=== PATIENT | male | born 1985 | race African-American/Black ===

== ENCOUNTER 2017-03-08 03:05 | Inpatient (IN) | payer MEDICAID ==
[~2017-03-08] VITALS: Ht 185.4 cm; Wt 161.5 kg
[~2017-03-08 03:05] MED LIST: ALPR2TAB1 PO; CLOP75TA26 PO; FOLI0.8T PO; HYDR2TAB6 PO; HYDR500C7 PO; LOV40I SUBQ; OXYC40TE66 PO; QUET400T PO; WARF10TA PO
[2017-03-08 03:18] VITALS: BP 147/113
--- NOTE | 2017-03-08 03:50 | NUR ---
PT TO ER ROOM 3 VIA W/C
--- NOTE | 2017-03-08 04:05 | NUR ---
31 Y/O M W/C/O CHEST PAIN AND SOB X 2 HRS. MED HX SICKLE CELL, AR, PE, DVT, STROKE, BIPOLAR. PT STATES CP IS SUBSTERNAL, NONRADIATING WITH N/V; PT AMBULATED WITH WHEELCHAIR; PT AAOX4; BREATHING IS CURRENTLY UNLABORED AND CLEAR; PT CURRENTLY O2SAT 98% RA
--- NOTE | 2017-03-08 04:09 | NUR ---
PT HAS PICC LINE TO LEFT MEDIAL UPPER ARM
--- NOTE | 2017-03-08 04:14 | NUR ---
X-Ray at bedside.
--- NOTE | 2017-03-08 04:31 | NUR ---
Dr. Webber evaluating patient at bedside.
[2017-03-08] MEDS ORDERED: ALBUTEROL SULFATE/IPRATROPIU 3 ML SOL IH ONE (04:35)
[2017-03-08] MEDS ORDERED: methylPREDNISolone SS 125 MG/2 ML VIAL IVP ONE (04:35)
[2017-03-08] MEDS ORDERED: HYDROmorphone PFS 4 MG/ML SYR IVP ONE ×3 (04:35→07:05)
[2017-03-08] MEDS ORDERED: NACL 0.9% 1,000 ML IV ONE ×2 (04:35→06:05)
[2017-03-08] MEDS ORDERED: diphenhydrAMINE 50 MG/ML VIAL IVP ONE ×3 (04:35→07:05)
[2017-03-08 04:50] LABS: EOSINOPHILS # (AUTO) 0.3 K/uL (0-0.4); HEMOGLOBIN 9.9 g/dL (12.0-18.0); NEUTROPHILS # (AUTO) 4.4 K/uL (1.8-7.7); WHITE BLOOD COUNT (AUTO) 6.4 K/uL (4.8-10.8)
[2017-03-08 05:01] LABS: BASOPHILS # (AUTO) 0.1 K/uL (0.00-0.22); BASOPHILS % (AUTO) 1.9 % (0.0-2.0); EOSINOPHILS % (AUTO) 4.1 % (0.0-4.0); HEMATOCRIT 32.4 % (36-52); LYMPHOCYTES # (AUTO) 1.2 K/uL (2.0-11.5); LYMPHOCYTES % (AUTO) 19.1 % (20.5-51.1); MEAN CORPUSCULAR HEMOGLOBIN 26 pg (27-31); MEAN CORPUSCULAR HGB CONC 31 g/dL (33-37); MEAN CORPUSCULAR VOLUME 86 fL (80-94); MONOCYTES # (AUTO) 0.4 K/uL (0.8-1.0); PLATELET COUNT (AUTO) 257 K/uL (140-450); RED BLOOD CELL COUNT(AUTO) 3.77 MIL/uL (4.20-6.10); RED CELL DISTRIBUTION WIDTH 18.3 % (11.6-13.7)
[2017-03-08 05:02] LABS: ANION GAP 14.9 (8-16); CARBON DIOXIDE 26.6 mmol/L (21-32); CREATININE 1.4 mg/dL (0.7-1.3); POTASSIUM 3.5 mmol/L (3.5-5.1)
[2017-03-08 05:05] LABS: NEUTROPHILS % (AUTO) 67.9 % (42.2-75.2)
[2017-03-08 05:07] LABS: PROTHROMBIN TIME 11.1 secs (10.8-13.4)
[2017-03-08 05:08] LABS: ALBUMIN 3.7 g/dL (3.4-5.0); TOTAL BILIRUBIN 0.3 mg/dL (0.0-1.0)
[2017-03-08 05:30] LABS: CKMB RELATIVE INDEX 0.4 (0.0-2.5); CREATINE KINASE MB 3.4 ng/mL (0-3.6)
[2017-03-08] MEDS ORDERED: ONDANSETRON 4 MG/2 ML VIAL IVP PRN (06:45)
[2017-03-08] MEDS ORDERED: HYDROmorphone PFS 2 MG/ML SYR IVP PRN (06:45)
[2017-03-08] MEDS ORDERED: ACETAMINOPHEN 325 MG TAB PO PRN (06:45)
[2017-03-08] MEDS ORDERED: VANCOMYCIN 1,250 MG in DEXTROSE 5% 250 ML IV ONE (07:05)
--- NOTE | 2017-03-08 07:17 | NUR ---
Pt report given to ESTRELLITA. Transfer of care at this time.
[2017-03-08] MEDS ORDERED: VANCOMYCIN 1,000 MG VIAL ONE (07:25)
[2017-03-08] MEDS: DOCUSATE SODIUM 100 MG GELCAP PO SCH ×2 (09:00→21:00)
[2017-03-08] MEDS ORDERED: HYDROmorphone 1 MG/ML AMP IVP ONE (10:20)
--- NOTE | 2017-03-08 11:25 | NUR ---
Patient will be admitted to care of DR GUERRIER. Admited to TELE. Will go to room 105A. Belongings list completed. Report to EDWARD FRYE.
[2017-03-08 11:55] LABS: APPEARANCE,URINE CLEAR (CLEAR); BILIRUBIN,URINE NEGATIVE (NEGATIVE); BLOOD, URINE TRACE-L (NEGATIVE); COLOR,URINE YELLOW (YELLOW); LEUKOCYTE ESTERASE ,URINE NEGATIVE (NEGATIVE); NITRITE, URINE NEGATIVE (NEGATIVE); PH,URINE 5.5 (5.0-9.0); UGLUCOSE NEGATIVE (NEGATIVE)
[2017-03-08] MEDS ORDERED: diphenhydrAMINE 50 MG/ML VIAL IVP PRN (11:55)
[2017-03-08 12:00] VITALS: BP 142/76
[2017-03-08 12:02] LABS: BARBITURATE, URINE NEG. ng/ml (NEG <=200); BENZODIAZEPINE, URINE POS. ng/mL (NEG <=200); CANNABINOID, URINE NEG. ng/mL (NEG <=50); COCAINE, URINE NEG. ng/mL (NEG <=300); OPIATE, URINE POS. ng/mL (NEG <=2000); PHENCYCLIDINE SCREEN,URINE NEG. ng/mL (NEG <=25)
--- NOTE | 2017-03-08 12:15 | NUR ---
PATIENT WAS TRANSFERRED FROM ER IN HIS WHEELCHAIR. PATIENT IS AWAKE, ALERT, ORIENTEDX4. PUPILS EQUAL REACTIVE TO LIGHT. RESPIRATION EVEN, LUNGS SOUND CLEAR THROUGHOUT. CARDIAC S1,S2 PRESENT. SKIN INTACT. BOWEL SOUND ACTIVE 4 QUADRANTS. PICC LINE ON LEFT ARM WITH DOUBLE LUMEN, PATENT AND INTACT. VS TAKEN, MRSA WAS SWABBED AND SENT TO LAB. PATIENT WAS ORIENTED TO STAFF, ROOM, AND CALL LIGHT. PATIENT WAS PLACED ON UNSCRAMBLER. COMPLAINED OF PAIN 10/10 ON CHEST AND JOINTS. WILL MEDICATE PER ORDER. CALL LIGHT WITHIN REACH. WILL CONTINUE TO MONITOR.
[2017-03-08 12:34] LABS: RBC,URINE 0-5 (RARE) /HPF (0-5); WBC,URINE 0-5 (RARE) /HPF (0-5)
[2017-03-08] MEDS: NACL 0.9% 1,000 ML IV SCH ×3 (12:47→20:34)
[2017-03-08 13:05] LABS: CHOL/HDL RATIO 3.6 (1-4.5); FREE T4 (FREE THYROXINE) 1.02 ng/dL (0.76-1.46); MAGNESIUM 2.1 mg/dL (1.8-2.4); PHOSPHORUS 4.7 mg/dL (2.5-4.9); THYROID STIMULATING HORMONE 5.74 uIU/mL (0.34-3.74)
[2017-03-08] MEDS: HYDROmorphone PFS 2 MG/ML SYR IVP PRN ×5 (14:32→22:43)
[2017-03-08] MEDS ORDERED: NITROGLYCERIN 0.4 MG TAB SL PRN (15:00)
[2017-03-08 16:00] VITALS: BP 149/83
[2017-03-08] MEDS: diphenhydrAMINE 50 MG/ML VIAL IVP PRN ×2 (16:28→20:28)
--- NOTE | 2017-03-08 16:34 | NUR ---
PT C/O GENERALIZED JOINT PAIN, RATES 10/10, REQUESTS DILAUDID AND BENADRYL, PT TALKING WITH ROOM MATE SMILING AND LAUGHING IN NAD, MEDICATED PER PRN ORDER, CALL PRATER WITHIN REACH, SIDE RAILS UP, BED LOCKED IN LOW POSITION, WILL CONTINUE TO MONITOR.
[2017-03-08] MEDS: HYDROXYUREA 500 MG CAP PO SCH (17:00)
--- NOTE | 2017-03-08 18:35 | NUR ---
PATIENT IS AWAKE ALERT, WATCHING TV. RESPIRATION EVEN, NO DISTRESS NOTED. PATIENT COMPLAINED OF JOINT PAIN 9/10. PAIN MED WAS GIVEN PER ORDER. CALL LIGHT WITHIN REACH. WILL CONTINUE TO MONITOR
--- NOTE | 2017-03-08 19:31 | NUR ---
ENDORSEMENT GIVEN TO THE DIRECTOR OF PROMOTIONS NURSE. PATIENT IS STABLE AT THIS TIME.
--- NOTE | 2017-03-08 19:32 | NUR ---
PATIENT REPORT RECEIVED FROM MORNING NURSE AT BEDSIDE. PATIENT IS AWAKE, ALERT AND ORIENTED. NO SIGNS AND SYMPTOMS OF DISTRESS NOTED. PATIENT IS RESTING COMFORTABLY IN BED. PICC LINE NOTED IN LEFT UPPER ARM, INTACT AND PATENT WITH NS RUNNING AT 150ML/HR. BED IN LOWEST POSITION SIDE RAILS UP AND CALL LIGHT WITHIN REACH. WILL CONTINUE TO MONITOR.
[2017-03-08 20:00] VITALS: BP 151/85
[2017-03-08] MEDS: ATORVASTATIN 20 MG TAB PO SCH (20:22)
[2017-03-08] MEDS: METOPROLOL 25 MG TAB PO SCH (20:23)
[2017-03-08] MEDS: QUEtiapine FUMARATE 100 MG TAB PO SCH (20:24)
--- NOTE | 2017-03-08 21:00 | NUR ---
PATIENT REFUSED COLACE. GAVE EDUCATION ON MEDICATION. PATIENT STATED THAT HE HAD A BOWEL MOVEMENT THIS MORNING.
[2017-03-08] MEDS: HYDROcodone/APAP 7.5/325 MG 1 TAB PO PRN (21:49)
[2017-03-09] VITALS: BP 124/78
[2017-03-09] MEDS: diphenhydrAMINE 50 MG/ML VIAL IVP PRN ×4 (00:44→21:45)
[2017-03-09] MEDS: HYDROmorphone PFS 2 MG/ML SYR IVP PRN ×6 (00:50→23:47)
[2017-03-09] MEDS: NACL 0.9% 1,000 ML IV SCH ×2 (03:08→09:25)
[2017-03-09 04:00] VITALS: BP 141/94
--- NOTE | 2017-03-09 06:44 | NUR ---
PATIENT HAS BEEN SCREENED AND CATEGORIZED HIGH NUTRITION RISK. PATIENT WILL BE SEEN WITHIN 1-2 DAYS OF ADMISSION. 03/09/17-03/10/17 BETTY HOLLINS MS, RDN
--- NOTE | 2017-03-09 07:05 | NUR ---
CHECKED ON PATIENT. NOTICED SOME BLOOD ON PATIENT'S GOWN, NEAR LEFT ARM. FOUND OUT THAT THE PATIENT ACCIDENTALLY PULLED OUT HIS PICC LINE. PICC LINE CATHETER WITH BLUE TIP INTACT. PUT PRESSURE, AND TAPED SOME GAUZE ON THE SITE TO STOP ANY BLEEDING. GERRY BANDAGE WRAPPED AROUND LEFT ARM. CHECKED PATIENT'S O2 SAT, IT IS AT 100%. NO SIGNS AND SYMPTOMS OF DISTRESS NOTED ON THE PATIENT. DOCTOR MAYRA NOTIFIED. DOCTOR SPOKE WITH PATIENT.
--- NOTE | 2017-03-09 07:33 | NUR ---
PATIENT REPORT GIVEN TO MORNING NURSE AT BEDSIDE. PATIENT IS IN STABLE CONDITION.
--- NOTE | 2017-03-09 07:33 | NUR ---
ENDORSEMENT RECEIVED FROM NITROCELLULOSE MAKER NURSE. PATIENT IS STABLE, RESPIRATION EVEN, SKIN DRY AND WARM TO THE TOUCH. CALL LIGHT WITHIN REACH. WILL CONTINUE TO MONITOR.
[2017-03-09 08:00] VITALS: BP 144/88
--- NOTE | 2017-03-09 08:00 | NUR ---
PATIENT IS SLEEPING, EASILY AROUSABLE BY NAME. PUPILS EQUAL, REACTIVE TO LIGHT. RESPIRATION EVEN, LUNGS SOUND CLEAR THROUGHOUT. CARDIAC WITH S1,S2 PRESENT. BOWEL SOUND ACTIVE 4 QUADRANTS. SKIN INTACT. COMPLAINED OF JOIN PAINT 12/22. WILL MEDICATE PER ORDER. CALL LIGHT WITHIN REACH. WILL CONTINUE TO MONITOR.
--- NOTE | 2017-03-09 08:17 | NUR ---
UNABLE TO START PIV, DR JOHNSTON NOTIFIED FOR CENTRAL LINE START.
[2017-03-09] MEDS ORDERED: HYDROmorphone PFS 2 MG/ML SYR IM SCH ×2 (08:21→12:30)
[2017-03-09] MEDS: DOCUSATE SODIUM 100 MG GELCAP PO SCH ×2 (09:00→21:00)
[2017-03-09] MEDS: HYDROXYUREA 500 MG CAP PO SCH ×3 (09:00→17:00)
[2017-03-09] MEDS: LISINOPRIL 5 MG TAB PO SCH (09:43)
[2017-03-09] MEDS: ASPIRIN 81 MG TAB.CHEW PO SCH (09:43)
[2017-03-09] MEDS: QUEtiapine FUMARATE 100 MG TAB PO SCH ×2 (09:43→21:36)
[2017-03-09] MEDS: METOPROLOL 25 MG TAB PO SCH ×2 (09:44→21:37)
--- NOTE | 2017-03-09 09:50 | NUR ---
PATIENT IS SLEEPING, AROUSABLE BY NAME. MEDS WERE GIVEN. PATIENT IS STABLE AT THIS TIME. CALL LIGHT WITHIN REACH. WILL CONTINUE TO MONITOR
--- NOTE | 2017-03-09 11:30 | NUR ---
PATIENT REFUSED TO HAVE VITAL SIGN TAKEN UNTIL THE PICC CAN BE INSERTED. DR. PIZARRO WAS MADE AWARE.
[2017-03-09] MEDS ORDERED: HYDROmorphone 1 MG/ML AMP IM SCH (12:30)
[2017-03-09] MEDS ORDERED: LIDOCAINE/EPI 2% 1:100000 20 ML VIAL INJ SCH (12:30)
--- NOTE | 2017-03-09 12:55 | NUR ---
AT BEDSIDE FOR PICC LINE INSERTION. CONSENT OBTAINED, TIME OUT DONE
[2017-03-09] MEDS: HYDROcodone/APAP 7.5/325 MG 1 TAB PO PRN ×3 (13:44→23:00)
--- NOTE | 2017-03-09 16:00 | NUR ---
PATIENT REFUSED VITAL SIGN AND STATED PATIENT WANTED TO HAVE THE CENTRAL LINE IN FIRST. WILL CONTINUE TO MONITOR
--- NOTE | 2017-03-09 16:30 | NUR ---
PAIN MEDICATION WAS GIVEN VIA CENTRAL LINE. LINE FLUSHED WELL. LAB WAS DRAWN FROM CENTRAL LINE ON LEFT FEMORAL. PATIENT TOLERATED WELL. IVF WAS RECONNECTED. CALL LIGHT WITHIN REACH. WILL CONTINUE TO MONITOR
[2017-03-09] MEDS ORDERED: WARFARIN 5 MG TAB PO SCH (17:00)
[2017-03-09] MEDS ORDERED: HYDROmorphone PFS 4 MG/ML SYR IVP SCH (17:20)
[2017-03-09] MEDS ORDERED: VANCOMYCIN PER PHARMACY MC PRN (17:35)
[2017-03-09 17:48] LABS: BASOPHILS # (AUTO) 0.1 K/uL (0.00-0.22); BASOPHILS % (AUTO) 2.1 % (0.0-2.0); EOSINOPHILS # (AUTO) 0.1 K/uL (0-0.4); HEMATOCRIT 29.6 % (36-52); HEMOGLOBIN 9.2 g/dL (12.0-18.0); LYMPHOCYTES # (AUTO) 1.7 K/uL (2.0-11.5); LYMPHOCYTES % (AUTO) 25.5 % (20.5-51.1); MEAN CORPUSCULAR HEMOGLOBIN 26 pg (27-31); MEAN CORPUSCULAR HGB CONC 31 g/dL (33-37); MEAN CORPUSCULAR VOLUME 85 fL (80-94); MONOCYTES # (AUTO) 0.5 K/uL (0.8-1.0); MONOCYTES % (AUTO) 7.6 % (1.7-9.3); NEUTROPHILS # (AUTO) 4.2 K/uL (1.8-7.7); NEUTROPHILS % (AUTO) 63.8 % (42.2-75.2); PLATELET COUNT (AUTO) 256 K/uL (140-450); RED BLOOD CELL COUNT(AUTO) 3.48 MIL/uL (4.20-6.10); WHITE BLOOD COUNT (AUTO) 6.6 K/uL (4.8-10.8)
[2017-03-09 17:58] LABS: ANION GAP 8.7 (8-16); CARBON DIOXIDE 30.7 mmol/L (21-32); CREATININE 1.1 mg/dL (0.7-1.3); POTASSIUM 3.4 mmol/L (3.5-5.1)
[2017-03-09 18:05] LABS: PROTHROMBIN TIME 10.5 secs (10.8-13.4)
[2017-03-09 18:23] LABS: MAGNESIUM 1.9 mg/dL (1.8-2.4); PHOSPHORUS 3.3 mg/dL (2.5-4.9)
--- NOTE | 2017-03-09 19:39 | NUR ---
ENDORSEMENT GIVEN TO BI TESTER NURSE. PATIENT IS STABLE AT THIS TIME.
--- NOTE | 2017-03-09 19:40 | NUR ---
PATIENT REPORT RECEIVED FROM MORNING NURSE AT BEDSIDE. PATIENT IS AWAKE, ALERT AND ORIENTED. PATIENT SITTING IN HIS WHEELCHAIR. PICC LINE NOTED ON LEFT FEMORAL AREA. NO SIGNS AND SYMPTOMS OF DISTRESS NOTED. CALL LIGHT WITHIN REACH. WILL CONTINUE TO MONITOR.
[2017-03-09 20:00] VITALS: BP 136/99
--- NOTE | 2017-03-09 20:30 | NUR ---
PATIENT COMPLAINED THAT AFTER HE WENT TO THE RESTROOM, HE SAW A LITTLE BIT OF BLOOD ON THE TOILET SEAT. PATIENT REQUESTED TO SEE THE DOCTOR. DR. JOHNSTON SAW THE PATIENT AND THEN CHANGED THE DRESSING ON THE PICC LINE
[2017-03-09] MEDS ORDERED: VANCOMYCIN 1,000 MG VIAL ONE (21:19)
[2017-03-09] MEDS: ATORVASTATIN 20 MG TAB PO SCH (21:38)
[2017-03-09] MEDS: VANCOMYCIN 1GM/DEXT 5% PREMIX 400 ML IV SCH (22:00)
[2017-03-10] VITALS (7 sets, daily range): BP systolic 113–138; BP diastolic 64–80
[2017-03-10] MEDS: HYDROmorphone PFS 2 MG/ML SYR IVP PRN ×11 (01:47→22:06)
[2017-03-10] MEDS: diphenhydrAMINE 50 MG/ML VIAL IVP PRN ×6 (01:52→22:07)
[2017-03-10] MEDS: HYDROcodone/APAP 7.5/325 MG 1 TAB PO PRN ×5 (03:14→21:09)
--- NOTE | 2017-03-10 07:19 | NUR ---
PATIENT REPORT GIVEN TO MORNING NURSE. PATIENT IS IN STABLE CONDITION
--- NOTE | 2017-03-10 07:19 | NUR ---
ASSUMED CONTINUITY OF CARE. NO SIGNS AND SYMPTOMS OF ACUTE DISTRESS NOTED. INITIAL ASSESSMENT DONE. NON-COMPLIANT AND VERBALLY ABUSIVE AT TIMES. EXPLAINED DIAGNOSIS, PLAN OF CARE, PAIN MANAGEMENT TEACHING, USE OF CALL LIGHT/BED/TV/BATHROOM. VERBALIZED UNDERSTANDING. FALL PRECAUTION APPLIED. CALL LIGHT WITHIN REACH.
[2017-03-10 07:41] LABS: BASOPHILS # (AUTO) 0.2 K/uL (0.00-0.22); BASOPHILS % (AUTO) 3.2 % (0.0-2.0); EOSINOPHILS # (AUTO) 0.1 K/uL (0-0.4); EOSINOPHILS % (AUTO) 2.3 % (0.0-4.0); HEMATOCRIT 27.9 % (36-52); HEMOGLOBIN 8.6 g/dL (12.0-18.0); LYMPHOCYTES # (AUTO) 1.6 K/uL (2.0-11.5); LYMPHOCYTES % (AUTO) 28.8 % (20.5-51.1); MEAN CORPUSCULAR HEMOGLOBIN 27 pg (27-31); MEAN CORPUSCULAR HGB CONC 31 g/dL (33-37); MEAN CORPUSCULAR VOLUME 87 fL (80-94); MONOCYTES # (AUTO) 0.6 K/uL (0.8-1.0); MONOCYTES % (AUTO) 10.2 % (1.7-9.3); NEUTROPHILS # (AUTO) 2.9 K/uL (1.8-7.7); NEUTROPHILS % (AUTO) 55.5 % (42.2-75.2); PLATELET COUNT (AUTO) 242 K/uL (140-450); RED BLOOD CELL COUNT(AUTO) 3.22 MIL/uL (4.20-6.10); WHITE BLOOD COUNT (AUTO) 5.4 K/uL (4.8-10.8)
--- NOTE | 2017-03-10 08:00 | NUR ---
Patient's Plan of Care was discussed and reviewed with MILL TENDER WASHING: FILOMENA Son
[2017-03-10 08:22] LABS: ANION GAP 9.1 (8-16); CARBON DIOXIDE 29.4 mmol/L (21-32); CREATININE 1.1 mg/dL (0.7-1.3); POTASSIUM 3.5 mmol/L (3.5-5.1)
[2017-03-10 08:28] LABS: MAGNESIUM 1.9 mg/dL (1.8-2.4); PHOSPHORUS 3.8 mg/dL (2.5-4.9)
[2017-03-10] MEDS: VANCOMYCIN 1GM/DEXT 5% PREMIX 400 ML IV SCH (08:37)
[2017-03-10] MEDS: DOCUSATE SODIUM 100 MG GELCAP PO SCH ×3 (09:00→21:00)
--- NOTE | 2017-03-10 09:51 | NUR ---
DR. NUNEZ CAME AND SAID OK TO GIVE DILAUDID 2 MG IVP AND BENADRYL IVP 50 MG IVP AT THE SAME TIME. NO ACUTE DISTRESS NOTICED. WILL MEDICATE PER MD ORDER.
[2017-03-10] MEDS: HYDROXYUREA 500 MG CAP PO SCH ×3 (09:56→17:17)
[2017-03-10] MEDS: METOPROLOL 25 MG TAB PO SCH ×2 (09:57→20:14)
[2017-03-10] MEDS: QUEtiapine FUMARATE 100 MG TAB PO SCH ×2 (09:57→20:14)
[2017-03-10] MEDS: ASPIRIN 81 MG TAB.CHEW PO SCH (09:58)
[2017-03-10] MEDS: LISINOPRIL 5 MG TAB PO SCH (09:59)
--- NOTE | 2017-03-10 10:15 | NUR ---
FOUND OUT THAT PT. NOT IN THE ROOM AT THIS TIME. INFORMED CHARGE NURSE RAMIREZ DUNCAN -EDWARD. CALLED SECURITY STAFF. PT. FOUND OUTSIDE AND SECURITY BROUGHT HIM INSIDE PT. ROOM. PT. NON-COMPLIANT AND VERBALLY ABUSIVE TO SECURITY STAFF.
[2017-03-10] MEDS ORDERED: BUPIVACAINE-MPF 0.25% 30 ML VIAL INJ ONE (10:32)
[2017-03-10] MEDS ORDERED: ceFAZolin 1,000 MG VIAL ONE (10:32)
[2017-03-10] MEDS ORDERED: LIDOCAINE/EPI MPF 1%1:200000 30 ML VIAL INJ ONE (10:32)
--- NOTE | 2017-03-10 11:15 | NUR ---
PT. WENT TO [facility] NURSE STATION VIA WHEELCHAIR AND SPOKE TO DR. GRAVES REGARDING PROCEDURE.
[2017-03-10 11:19] LABS: PROTHROMBIN TIME 9.6 secs (10.8-13.4)
--- NOTE | 2017-03-10 11:27 | NUR ---
WENT TO OR VIA GURNEY. IN STABLE CONDITION.
--- NOTE | 2017-03-10 11:46 | NUR ---
BACK FROM OR VIA GURNEY. IN STABLE CONDITION. PER OR NURSE PROCEDURE WAS NOT DONE DUE TO MEDICAL EQUIPMENT WAS NOT AVAILABLE. INFORMED DR. NUNEZ AND CHARGE NURSE RAMIREZ CORADO.
--- NOTE | 2017-03-10 16:00 | NUR ---
VITALS SIGNS STABLE. CONTINUE MONITORING.
[2017-03-10] MEDS ORDERED: oxyCODONE 40 MG TABER PO SCH (16:50)
[2017-03-10] MEDS: VANCOMYCIN 1GM/DEXT 5% PREMIX 200 ML IV SCH (18:05)
--- NOTE | 2017-03-10 19:12 | NUR ---
BEDSIDE REPORT GIVEN TO GLADYS CORADO. IN STABLE CONDITION. ALSO ENDORSED TO CLARIFY WITH MD ABOUT OXYCODONE ORDER.
--- NOTE | 2017-03-10 19:13 | NUR ---
PATIENT REPORT RECEIVED FROM MORNING NURSE FILOMENA VILLALTA AT BEDSIDE. PATIENT IS AWAKE, ALERT AND ORIENTED. PATIENT SITTING IN HIS WHEELCHAIR. PICC LINE NOTED ON LEFT FEMORAL AREA. NO SIGNS AND SYMPTOMS OF DISTRESS NOTED. SKIN IS INTACT, SKIN WARM AND DRY TO TOUCH, PT IS ON ROOM AIR. INITIAL ASSESSMENT COMPLETED. PLAN OF CARE DISCUSSED WITH PT, VERBALIZED UNDERSTANDING, ALL SAFETY PRECAUTIONS MET, CALL LIGHT WITHIN REACH. WILL CONTINUE TO MONITOR
--- NOTE | 2017-03-10 20:05 | NUR ---
ADMINISTERED DILAUDID FOR PAIN 01/21
[2017-03-10] MEDS: ATORVASTATIN 20 MG TAB PO SCH (20:14)
[2017-03-11] VITALS: BP 114/80
--- NOTE | 2017-03-11 | NUR ---
PT SEEN RESTING COMFORTABLY IN BED, NO S/S OF DISTRESS. PT LOOKS RELAXED
[2017-03-11] MEDS: HYDROmorphone PFS 2 MG/ML SYR IVP PRN ×10 (00:07→19:10)
[2017-03-11] MEDS: HYDROcodone/APAP 7.5/325 MG 1 TAB PO PRN ×3 (01:07→13:52)
[2017-03-11] MEDS: VANCOMYCIN 1GM/DEXT 5% PREMIX 200 ML IV SCH ×2 (01:57→09:00)
[2017-03-11] MEDS: diphenhydrAMINE 50 MG/ML VIAL IVP PRN ×7 (02:14→19:10)
--- NOTE | 2017-03-11 03:00 | NUR ---
PT SEEN RESTING COMFORTABLY IN BED, NO S/S OF DISTRESS. PT LOOKS RELAXED
--- NOTE | 2017-03-11 06:47 | NUR ---
PT REFUSES TO SIGN CONSENT AT THIS TIME BECAUSE THERE IS NOT A SET TIME FOR CATHETER PLACEMENT. PT STATES HE WANTS TO SIGN IT WHEN HE GOES TO OR
--- NOTE | 2017-03-11 07:28 | NUR ---
PT RESTING. NO SOB NOTED. NO COMPLAINTS MADE AT THIS TIME. WILL ENDORSE TO NEXT SHIFT NURSE FOR CONTINUITY OF CARE.
--- NOTE | 2017-03-11 07:29 | NUR ---
RECEIVED REPORT FROM RIVETING MACHINE OPERATOR AUTOMATIC NURSE GLADYS AT BEDSIDE FOR CONTINUITY OF CARE. PT IS SLEEPING IN BED RIGHT NOW. NO SIGNS OF DISTRESS. WILL CONTINUE TO MONITOR.
[2017-03-11 08:00] VITALS: BP 131/82
[2017-03-11] MEDS ORDERED: LIDOCAINE 1% 50 ML ONE (08:27)
--- NOTE | 2017-03-11 08:28 | NUR ---
DR. GRAVES CAME AND SPOKE WITH PT ABOUT PROCEDURE. PT SIGNED CONSENT FORM AND LEFT FOR PROCEDURE VIA HOSPITAL BED ACCOMPANIED BY RN.
[2017-03-11] MEDS ORDERED: PROPOFOL 200 MG/20 ML VIAL IV ONE (08:40)
[2017-03-11] MEDS ORDERED: fentaNYL 0.05 MG/ML VIAL ONE (08:56)
[2017-03-11] MEDS ORDERED: KETAMINE 500 MG/5 ML VIAL ONE (08:56)
[2017-03-11] MEDS ORDERED: MIDAZOLAM 2 MG/2 ML VIAL ONE (08:56)
[2017-03-11] MEDS: QUEtiapine FUMARATE 100 MG TAB PO SCH ×2 (09:00→11:15)
[2017-03-11] MEDS: oxyCODONE 40 MG TABER PO SCH ×2 (09:00→11:20)
[2017-03-11] MEDS: HYDROXYUREA 500 MG CAP PO SCH ×3 (09:00→16:50)
[2017-03-11] MEDS: DOCUSATE SODIUM 100 MG GELCAP PO SCH (09:00)
[2017-03-11] MEDS: METOPROLOL 25 MG TAB PO SCH (09:00)
[2017-03-11] MEDS: LISINOPRIL 5 MG TAB PO SCH (09:00)
[2017-03-11] MEDS: ASPIRIN 81 MG TAB.CHEW PO SCH (09:00)
[2017-03-11] MEDS ORDERED: HYDROmorphone PFS 2 MG/ML SYR IVP PRN (09:10)
[2017-03-11] MEDS ORDERED: ONDANSETRON 4 MG/2 ML VIAL IV PRN (10:05)
[2017-03-11] MEDS ORDERED: HYDROmorphone PFS 2 MG/ML SYR ONE (10:14)
[2017-03-11] MEDS ORDERED: diphenhydrAMINE 50 MG/ML VIAL ONE (10:14)
--- NOTE | 2017-03-11 10:59 | NUR ---
PT RETURNED FROM OR. REPORT RECEIVED BY EDWARD MAJOR. VS: BP 101/61, HR 90, O2SAT 99% ON RA, RR 20. NO SIGNS OF DISTRESS. CENTRAL LINE DRESSING IN PLACE. NO BLEEDING NOTED. WILL CONTINUE TO MONITOR.
[2017-03-11 11:00] LABS: BASOPHILS # (AUTO) 0.2 K/uL (0.00-0.22); BASOPHILS % (AUTO) 4.4 % (0.0-2.0); EOSINOPHILS # (AUTO) 0.2 K/uL (0-0.4); EOSINOPHILS % (AUTO) 3.7 % (0.0-4.0); HEMATOCRIT 29.1 % (36-52); HEMOGLOBIN 8.8 g/dL (12.0-18.0); LYMPHOCYTES # (AUTO) 1.4 K/uL (2.0-11.5); LYMPHOCYTES % (AUTO) 27.1 % (20.5-51.1); MEAN CORPUSCULAR HEMOGLOBIN 26 pg (27-31); MEAN CORPUSCULAR HGB CONC 30 g/dL (33-37); MEAN CORPUSCULAR VOLUME 87 fL (80-94); MONOCYTES # (AUTO) 0.4 K/uL (0.8-1.0); MONOCYTES % (AUTO) 8.6 % (1.7-9.3); NEUTROPHILS # (AUTO) 2.8 K/uL (1.8-7.7); NEUTROPHILS % (AUTO) 56.2 % (42.2-75.2); PLATELET COUNT (AUTO) 252 K/uL (140-450); RED BLOOD CELL COUNT(AUTO) 3.36 MIL/uL (4.20-6.10); RED CELL DISTRIBUTION WIDTH 18.3 % (11.6-13.7)
[2017-03-11 12:06] LABS: PROTHROMBIN TIME 9.8 secs (10.8-13.4)
[2017-03-11 12:07] LABS: ANION GAP 4.9 (8-16); CARBON DIOXIDE 30.8 mmol/L (21-32); POTASSIUM 3.7 mmol/L (3.5-5.1)
[2017-03-11 12:10] LABS: MAGNESIUM 1.9 mg/dL (1.8-2.4); PHOSPHORUS 4.4 mg/dL (2.5-4.9)
[2017-03-11] MEDS ORDERED: VANCOMYCIN 1,000 MG in NACL 0.9% 250 ML IV SCH (14:00)
[2017-03-11 16:00] VITALS: BP 117/56
[2017-03-11] MEDS ORDERED: HYDR2TAB6 PO (16:11)
--- NOTE | 2017-03-11 17:56 | NUR ---
PT CAME OUT OF ROOM VIA WHEELCHAIR. ASKED FOR RX UPON D/C. PT AWARE THAT HE WILL BE D/C'D TO GO HOME TODAY. STATED DAD WILL ASSEMBLER RUBBER FOOTWEAR AT 7:30PM. PT WENT BACK TO ROOM. EATING DINNER TRAY RIGHT NOW.
[2017-03-11] MEDS ORDERED: HYDROmorphone PFS 4 MG/ML SYR IVP SCH (19:05)
--- NOTE | 2017-03-11 19:22 | NUR ---
ENDORSED PT TO PROJECT LANDSCAPE ARCHITECT NURSE LUCILLE AT BEDSIDE FOR CONTINUITY OF CARE. PT'S FAMILY MEMBERS AT BEDSIDE. PT IN STABLE CONDITION. Addendum: 03/11/17 at 1923 by Bernice Herrmann RN VOID PREVIOUS NOTE. CHARTED ON WRONG PT.
--- NOTE | 2017-03-11 19:23 | NUR ---
ADMINISTERED DILAUDID AND BENADRYL. IN LEFT FEMORAL LINE. FEMORAL CENTRAL LINE D/C'D. SUTURES REMOVED. APPLIED DRESSING AND PRESSURE TO SITE. NO BLEEDING NOTED. PT D/C FORMS AND INSTRUCTIONS GIVEN. PT VERBALIZED UNDERSTANDING.
--- NOTE | 2017-03-11 19:35 | NUR ---
ENDORSED PT TO AUTOMOTIVE ELECTRICIAN NURSE BALDEMAR AT BEDSIDE FOR CONTINUITY OF CARE. PT IS SITTING UP IN BED TALKING ON PHONE. IN STABLE CONDITION.
--- NOTE | 2017-03-11 19:37 | NUR ---
RECEIVED REPORT FROM DAY SHIFT NURSE. PT IN BED, SITTING. AAOX4. NO C/O PAIN OR DISCOMFORT NOTED. PT HAS [place]ONG TUNNELED CATH AT LEFT UPPER CHEST WITH DRESSING CLEAN, DRY AND INTACT. PT WAITING FOR HIS TRANSPORTATION.
--- NOTE | 2017-03-11 20:15 | NUR ---
ALL PAPERWORKS SIGNED AND DISCHARGE PACKET GIVEN TO PT. PT WHEELED OUT TO LOBBY WITH HIS PERSONAL BELONGINGS. TRANSPORTATION WAITING OUTSIDE. PT IN STABLE CONDITION.
--- NOTE | 2017-03-13 13:02 | NUR ---
LATE ENTRY FOR 03/11/17 1330. SPOKE WITH PT AT BEDSIDE AND HE STATED THAT HE CURRENTLY LIVES WITH HIS FATHER IN [place] AND HE VERIFIED THAT ADDRESS ON THE FACESHEET AND THE PHONE NUMBER IS CORRECT. PROVIDED HIS CELL NUMBER [phone]. PT STATED THAT HE IS CURRENTLY RECEIVING IV VANCOMYCIN THROUGH AN [facility] PHARM[facility] BUT CAN'T REMEMBER THE NAME BUT WILL HAVE HIS FATHER CALL WITH THE PHARMACY NAME AND PHONE NUMBER WHEN HE GETS HOME FROM WORK. PER PT HE HAS BEEN TAUGHT HOW TO ADMINISTER IVPB AND HAS BEEN DOING SO FOR PAST FEW WEEKS. STATED HE WAS VISITING A FRIEND IN THE AREA WHEN HE GOT SICK AND CAME TO ED AT [facility]. [address] NUNEZ HE SPOKE WITH PT AND PT STATED THAT HE HAS APPROX 4 WEEKS OF IV ABX CURRENTLY AT HIS HOME SO PT CAN DISCHARGE AND DR JOHNSTON WILL CONTACT PT'S CLINIC WHERE HE FOLLOWS UP TO REQUEST APPT [facility]
== END 2017-03-11 20:10 | disposition home or self-care (01) | DRG 662 ==
LOC: MED 03:05 → MTU 06:53
PROVIDERS: ADMIT Family Medicine; ATTEND Family Medicine
PROC: 06HN33Z Insertion of Infusion Device into Left Femoral Vein, Percutaneous Approach (ICD-10-PCS; 2017-03-09)
PROC: B54CZZA Ultrasonography of Left Lower Extremity Veins, Guidance (ICD-10-PCS; 2017-03-09)
PROC: 05HA33Z Insertion of Infusion Device into Left Brachial Vein, Percutaneous Approach (ICD-10-PCS; 2017-03-09)
PROC: B54NZZA Ultrasonography of Left Upper Extremity Veins, Guidance (ICD-10-PCS; 2017-03-09)
PROC: 02HV33Z Insertion of Infusion Device into Superior Vena Cava, Percutaneous Approach (ICD-10-PCS; 2017-03-11)
PROC: B5181ZA Fluoroscopy of Superior Vena Cava using Low Osmolar Contrast, Guidance (ICD-10-PCS; 2017-03-11)
PROC: B547ZZA Ultrasonography of Left Subclavian Vein, Guidance (ICD-10-PCS; 2017-03-11)
PROC: 0JH63XZ Insertion of Tunneled Vascular Access Device into Chest Subcutaneous Tissue and Fascia, Percutaneous Approach (ICD-10-PCS; principal; 2017-03-11 08:30)
DX: D57.00 Hb-SS disease with crisis, unspecified (principal); N17.0 Acute kidney failure with tubular necrosis; Z68.42 Body mass index [BMI] 45.0-49.9, adult; M87.851 Other osteonecrosis, right femur; E66.01 Morbid (severe) obesity due to excess calories; I48.2 Chronic atrial fibrillation; Z96.641 Presence of right artificial hip joint; K21.9 Gastro-esophageal reflux disease without esophagitis; E11.9 Type 2 diabetes mellitus without complications; M94.0 Chondrocostal junction syndrome [Tietze]; F41.1 Generalized anxiety disorder; E87.6 Hypokalemia; F31.9 Bipolar disorder, unspecified; Z88.6 Allergy status to analgesic agent; Z88.8 Allergy status to other drugs, medicaments and biological substances; Z79.2 Long term (current) use of antibiotics; I25.2 Old myocardial infarction; Z95.5 Presence of coronary angioplasty implant and graft; Z86.711 Personal history of pulmonary embolism; Z86.718 Personal history of other venous thrombosis and embolism; Z79.01 Long term (current) use of anticoagulants; Z90.81 Acquired absence of spleen; Z56.0 Unemployment, unspecified; Z86.73 Personal history of transient ischemic attack (TIA), and cerebral infarction without residual deficits
CPT/HCPCS: 36415; 71010; 80048; 80053; 80202; 80305; 81001; 82150; 82550; 82553; 83036; 83605; 83690; 83735; 83880; 84100; 84439; 84443; 84484; 85025; 85610; 86886; 86900; 86901; 87040; 87081; 87086; 93005; 94640; 96361; 96365; 96366; 96375; 96376; 99285; C1751; J0690; J1170; J1200; J1642; J1644; J2001; J2250; J2704; J2930; J3010; J3370; J3490; J7030; J7060; J7620; Q0092

== ENCOUNTER 2018-10-02 21:41 | Emergency (ER) | payer SELFPAY ==
[~2018-10-02] VITALS: Ht 188 cm; Wt 163.3 kg
[~2018-10-02 21:41] MED LIST changes: +ASPI-1718 PO; +GABA-638 PO; +HYDR-5122 PO; -LOV40I SUBQ
[2018-10-02] MEDS ORDERED: NACL 0.9% 1,000 ML IV SCH (21:51)
[2018-10-02] MEDS ORDERED: HYDROmorphone PFS 4 MG/ML SYR IVP ONE (21:55)
[2018-10-02 21:57] VITALS: BP 192/118
--- NOTE | 2018-10-02 21:58 | NUR ---
TO ED 02. EKG BEING PERFORMED AT THIS TIME.
--- NOTE | 2018-10-02 22:00 | NUR ---
PT BIB SELF C/O CHEST PAIN. PT STATES HE BEEN HAVING THROAT PAIN AND CONGESTION X3 DAYS; SUDDEN ONSET OF CHEST PRESSURE X1.5 HOURS AGO. --PT WINDED WHILE TALKING, SPEAKING IN CLEAR AND COMPLETE SENTENCES; PT ACTING APPROPRIATLY, AAOX4. BREATHING EQUAL BUT LABORED; AUDIBLE WHEEZING BL. PT STATES NON-RADIATING 10/10 CHEST PRESSURE. +2 PITTING EDEMA TO BL LOWER EXTREMITIES; STRONG PEDIAL PULSES BL; CAP REFIL <2. PT PRESENTS TO THE ED W/ PORT CATH TO RIGHT SIDE OF CHEST; FLUSHED WELL W/O RESISTANCE, NO REDNESS OR SWELLING NOTED TO SITE. --PT PLACED IN GOWN, ATTACHED TO BEDSIDE CARDIAC MONTIOR. PENDING ERMD EVAL. WILL CONTINUE TO MONITOR. PMH: PE, CVA, DVT TO LEFT LEG, LAST INTUBATION WAS 1.5 MONTHS AGO
--- NOTE | 2018-10-02 22:18 | NUR ---
X-RAY AT BEDSIDE.
--- NOTE | 2018-10-02 22:25 | NUR ---
DR. MORILLO AT BEDSIDE FOR EVALUATION.
--- NOTE | 2018-10-02 22:25 | NUR ---
RT AT BEDSIDE FOR ABG COLLECTION.
[2018-10-02] MEDS ORDERED: ONDANSETRON 4 MG/2 ML VIAL IVP ONE (22:30)
[2018-10-02] MEDS ORDERED: diphenhydrAMINE 50 MG/ML VIAL IVP ONE (22:30)
[2018-10-02] MEDS ORDERED: ALBUTEROL SULFATE/IPRATROPIU 3 ML SOL IH ONE (22:30)
[2018-10-02] MEDS ORDERED: methylPREDNISolone SS 125 MG/2 ML VIAL IVP ONE (22:30)
--- NOTE | 2018-10-02 22:50 | NUR ---
LAB AT BEDSIDE.
[2018-10-02] MEDS ORDERED: HYDROmorphone PFS 2 MG/ML SYR ONE (22:53)
[2018-10-02] MEDS ORDERED: ALBUTEROL 0.083% 2.5 MG/3 ML NEBU INH ONE (23:05)
[2018-10-02] MEDS ORDERED: fentaNYL 0.05 MG/ML VIAL IVP ONE (23:30)
--- NOTE | 2018-10-03 00:35 | NUR ---
PORT CATH FLUSHES WELL, DIFFICULTY PULLING BLOOD FROM SITE. SEVERAL ATTEMPTS MADE BY LAB AND ED STAFF TO COLLECT BLOOD DRAW. KARINA AWARE.
[2018-10-03 00:40] LABS: APPEARANCE,URINE CLEAR (CLEAR); BILIRUBIN,URINE NEGATIVE (NEGATIVE); BLOOD, URINE NEGATIVE (NEGATIVE); COLOR,URINE YELLOW (YELLOW); LEUKOCYTE ESTERASE ,URINE NEGATIVE (NEGATIVE); NITRITE, URINE NEGATIVE (NEGATIVE); UGLUCOSE NEGATIVE (NEGATIVE)
--- NOTE | 2018-10-03 01:00 | NUR ---
PT ENCOURAGED TO STAY, ATTEMPTS WHERE MADE TO ACCESS BLOOD WITH US AND VEIN FINDER, PT WOULD NOT LET ED STAFF ACCESS CERTAIN VEINS. PT IS NOT LETTING ED STAFF PROVIDE PT W/ CARE AT THIS TIME. PT STATES HE HAS A RIDE HOME, AND HE WILL CALL AND MAKE ARRANGMENTS. DR. MORILLO AWARE. PT ACTING APPROPRIATLY, SPEAKING IN CLEAR AND COMPLETE SENTENCES.
--- NOTE | 2018-10-03 01:06 | NUR ---
PT REFUSING LAB DRAW. PT STATES "YOU'RE NOT GONNA DRAW MY BLOOD FROM THERE, GIVE ME A PHONE SO I CAN CALL MY RIDE" YING SY MADE AWARE.
--- NOTE | 2018-10-03 01:10 | NUR ---
PT REQUESTING TO LEAVE. REFUSING ALL BLOOD DRAWS. ER MD AWARE. PT TO BE GIVEN AMA FORM.
--- NOTE | 2018-10-03 01:20 | NUR ---
PT USING ER PHONE TO CALL FOR RIDE HOME.
[2018-10-03 01:30] VITALS: BP 143/61
--- NOTE | 2018-10-03 01:30 | NUR ---
PT SIGNED AMA CONSENT AT THIS TIME.
--- NOTE | 2018-10-03 01:40 | NUR ---
PT LEFT UNIT VIA WHEELCHAIR TO LOBBY BY EMT. PT ACTING APPROPRIATLY.
[2018-10-03 02:17] LABS: BARBITURATE, URINE NEG. ng/ml (NEG <=200); BENZODIAZEPINE, URINE NEG. ng/mL (NEG <=200); CANNABINOID, URINE NEG. ng/mL (NEG <=50); COCAINE, URINE NEG. ng/mL (NEG <=300); OPIATE, URINE NEG. ng/mL (NEG <=2000); PHENCYCLIDINE SCREEN,URINE NEG. ng/mL (NEG <=25)
== END 2018-10-03 01:40 | disposition left against medical advice (07) ==
LOC: MED 21:41
DX: R07.89 Other chest pain (principal); D57.00 Hb-SS disease with crisis, unspecified; R06.02 Shortness of breath; R53.1 Weakness; R05 Cough; I25.2 Old myocardial infarction; Z95.5 Presence of coronary angioplasty implant and graft; Z86.711 Personal history of pulmonary embolism; Z86.73 Personal history of transient ischemic attack (TIA), and cerebral infarction without residual deficits; Z79.891 Long term (current) use of opiate analgesic; Z79.82 Long term (current) use of aspirin; Z79.01 Long term (current) use of anticoagulants; Z79.899 Other long term (current) drug therapy; Z88.6 Allergy status to analgesic agent; Z88.5 Allergy status to narcotic agent; Z88.8 Allergy status to other drugs, medicaments and biological substances
CPT/HCPCS: 36600; 71045; 80305; 81003; 82803; 93005; 93970; 94640; 96374; 96375; 99284; J1170; J1200; J2930; J3010; J7030; J7613; J7620; Q0092; 94644; J2405